=== PATIENT | male | born 1935 | race Two or more races ===

== ENCOUNTER 2024-07-01 10:17 | Outpatient (CLI) | payer OTHER | END 2024-07-01 10:18 | disposition home or self-care (01) | LOC: NUCLEAR 10:17 | PROVIDERS: ATTEND Psychiatry & Neurology Clinical Neurophysiology | DX: I87.2 Venous insufficiency (chronic) (peripheral) (principal) ==

== ENCOUNTER → 2024-07-07 | Outpatient (CLI) | payer OTHER | END | disposition home or self-care (01) | LOC: MRI 14:05 | PROVIDERS: ATTEND Psychiatry & Neurology Clinical Neurophysiology | DX: G11.2 Late-onset cerebellar ataxia (principal) | CPT/HCPCS: 70551 ==